=== PATIENT | female | born 1995 | race Caucasian/White ===

== ENCOUNTER 2016-10-01 20:16 | Outpatient (CLI) | payer OTHER, MEDICAID | END 2016-10-01 21:30 | disposition home or self-care (01) | LOC: LDOP 20:16 | PROVIDERS: ATTEND Obstetrics & Gynecology Gynecology | DX: O26.893 Other specified pregnancy related conditions, third trimester (principal); R03.0 Elevated blood-pressure reading, without diagnosis of hypertension; R51 Headache; Z3A.38 38 weeks gestation of pregnancy | CPT/HCPCS: 59025; 81003; 87086; 99211; G0463 ==